=== PATIENT | male | born 1970 | race Caucasian/White ===

== ENCOUNTER 2021-06-21 20:32 | Emergency (ER) | payer BC ==
[~2021-06-21] VITALS: Ht 167.6 cm; Wt 59.0 kg
[~2021-06-21 20:32] MED LIST: FLEXERIL PO; LEXAPRO 10 MG T10 M2 PO
[2021-06-21] MEDS ORDERED: GENTAK5 ML TOP (22:47)
[2021-06-21 23:00] VITALS: BP 128/89
== END 2021-06-21 23:30 | disposition home or self-care (01) ==
LOC: M.ERS 20:32
DX: T15.91XA Foreign body on external eye, part unspecified, right eye, initial encounter (principal); Z88.1 Allergy status to other antibiotic agents; Z88.8 Allergy status to other drugs, medicaments and biological substances; X58.XXXA Exposure to other specified factors, initial encounter; Y93.89 Activity, other specified; Y92.89 Other specified places as the place of occurrence of the external cause; Y99.8 Other external cause status